=== PATIENT | male | born 1965 | race Caucasian/White ===

== ENCOUNTER → 2016-11-16 | Outpatient (REF) | payer SELFPAY ==
[2016-11-16 15:46] LABS: ANION GAP 9 MEQ/L (8-16); BLOOD UREA NITROGEN 18 MG/DL (7-18); CARBON DIOXIDE LEVEL 27 MEQ/L (21-32); CHLORIDE LEVEL 108 MEQ/L (98-107); CREATININE FOR GFR 1.19 MG/DL (0.70-1.30); GLOMERULAR FILTRATION RATE > 60.0 (>56); GLUCOSE, FASTING 103 MG/DL (70-105); SODIUM LEVEL 144 MEQ/L (136-145)
[2016-11-16 15:48] LABS: MEAN CORPUSCULAR HEMOGLOBIN 32.2 pg (27.0-33.0); MEAN CORPUSCULAR HGB CONC 34.9 g/dl (32.0-36.5); MEAN CORPUSCULAR VOLUME 92.3 fl (80.0-96.0); RED CELL DISTRIBUTION WIDTH 12.3 % (11.5-14.5); WHITE BLOOD COUNT 13.7 K/mm3 (4.0-10.0)
== END ==
LOC: M SFHCLACO 08:08
PROVIDERS: ATTEND Physician Assistant
DX: F17.200 Nicotine dependence, unspecified, uncomplicated (principal); K21.9 Gastro-esophageal reflux disease without esophagitis

== ENCOUNTER 2022-08-11 21:50 | Emergency (ER) | payer SELFPAY ==
[~2022-08-11] VITALS: Ht 167.6 cm; Wt 102.5 kg
[2022-08-11] MEDS ORDERED: LOSA50TA28 PO (21:59)
[2022-08-11] MEDS ORDERED: IBUP80TA (21:59)
[2022-08-12 00:22] LABS: BASO % 0.3 % (0.0-1.0); EOS # 0.1 10^3/uL (0.0-0.5); EOS % 0.6 % (0.0-3.0); HEMATOCRIT 47.1 % (42.0-52.0); HEMOGLOBIN 15.9 g/dl (13.5-17.5); LYMPH # 1.8 10^3/uL (1.5-5.0); LYMPH % 17.3 % (24.0-44.0); MEAN CORPUSCULAR HEMOGLOBIN 30.9 pg (27.0-33.0); MEAN CORPUSCULAR HGB CONC 33.8 g/dl (32.0-36.5); MEAN CORPUSCULAR VOLUME 91.6 fl (80.0-96.0); MONO # 0.8 10^3/uL (0.0-0.8); MONO % 7.4 % (2.0-8.0); NEUTROPHILS # 7.7 10^3/uL (1.5-8.5); NEUTROPHILS % 74.1 % (36.0-66.0); PLATELET COUNT, AUTOMATED 320 10^3/uL (150-450); RED BLOOD COUNT 5.14 10^6/uL (4.30-6.10); WHITE BLOOD COUNT 10.3 10^3/uL (4.0-10.0)
[2022-08-12 00:33] LABS: INR 0.97; PROTHROMBIN TIME 13.1 SECONDS (12.5-14.5)
[2022-08-12] MEDS ORDERED: NS 1,000 ML IV ONE (00:35)
[2022-08-12] MEDS ORDERED: MORPHINE 4 MG/ML 1ML VIAL IV ONE (00:35)
[2022-08-12 00:42] LABS: ALBUMIN 4.3 G/DL (3.2-5.2); ALKALINE PHOSPHATASE 54 U/L (46-116); ALT/SGPT 29 U/L (7.0-40); AST/SGOT 21 U/L (<34); BILIRUBIN,DIRECT 0.3 MG/DL (<0.4); BILIRUBIN,TOTAL 0.9 MG/DL (0.3-1.2); BLOOD UREA NITROGEN 16 MG/DL (9-23); CALCIUM LEVEL 8.6 MG/DL (8.5-10.1); CARBON DIOXIDE LEVEL 26 MMOL/L (20-31); CHLORIDE LEVEL 106 MMOL/L (98-107); CREATININE FOR GFR 1.06 MG/DL (0.70-1.30); GLOMERULAR FILTRATION RATE > 60.0 (>56); GLUCOSE, FASTING 109 MG/DL (60-100); POTASSIUM SERUM 4.5 MMOL/L (3.5-5.1); SODIUM LEVEL 140 MMOL/L (136-145); TOTAL PROTEIN 7.1 G/DL (5.7-8.2)
[2022-08-12 00:44] LABS: THYROXINE (T4) 9.9 UG/DL (4.5-10.9)
[2022-08-12 00:45] VITALS: BP 152/94
[2022-08-12 00:46] LABS: CPK CREATINE PHOSPHOKINASE 110 U/L (46-171)
[2022-08-12] MEDS ORDERED: ISOVUE-370 76% 100ML VIAL As Ordered ONE (00:54)
[2022-08-12 01:10] LABS: LIPASE 28 U/L (12-53)
[2022-08-12] MEDS ORDERED: SIMETHICONE 80MG CHEW TAB PO STA (03:25)
[2022-08-12] MEDS ORDERED: SIME180C25 PO (03:35)
[2022-08-12 03:57] LABS: CK-MB VALUE MASS < 1.0 NG/ML (<3.6)
[2022-08-12 03:58] LABS: CPK CREATINE PHOSPHOKINASE 91 U/L (46-171); MB/CK RELATIVE INDEX 1.09 (< OR =4)
== END 2022-08-12 03:49 | disposition home or self-care (01) ==
LOC: M ED 21:50
DX: R14.0 Abdominal distension (gaseous) (principal); R14.3 Flatulence; I10 Essential (primary) hypertension; Z79.899 Other long term (current) drug therapy
CPT/HCPCS: 71045; 71275; 74177; 80048; 80076; 82550; 82553; 83605; 83690; 83880; 84436; 84443; 84484; 85025; 85610; 87486; 87581; 87633; 87798; 93005; 93041; 94760; 96374; 99285; Q9967

== ENCOUNTER → 2024-05-19 | Outpatient (CLI) | payer OTHER ==
[~2024-05-19] MED LIST: IBUP80TA; LOSA50TA28 PO; SIME1CAP4 PO
[2024-05-19 15:12] LABS: BLOOD UREA NITROGEN 18 MG/DL (9-23); CARBON DIOXIDE LEVEL 30 MMOL/L (20-31); CHLORIDE LEVEL 108 MMOL/L (98-107); CREATININE FOR GFR 1.02 MG/DL (0.70-1.30); GLOMERULAR FILTRATION RATE > 60.0 (>56); GLUCOSE, FASTING 137 MG/DL (60-100); POTASSIUM SERUM 4.4 MMOL/L (3.5-5.1); SODIUM LEVEL 143 MMOL/L (136-145)
== END ==
LOC: M WUC 07:24
PROVIDERS: ATTEND Internal Medicine Cardiovascular Disease
DX: Q89.9 Congenital malformation, unspecified (principal); I34.0 Nonrheumatic mitral (valve) insufficiency

== ENCOUNTER → 2024-10-13 | Outpatient (REF) | payer OTHER, SELFPAY ==
[2024-10-13 13:56] LABS: ESTIMATED AVERAGE GLUCOSE 120.0 MG/DL (60-110)
== END ==
LOC: M LABDRWAD 12:32
PROVIDERS: ATTEND Nurse Practitioner Family
DX: E11.9 Type 2 diabetes mellitus without complications (principal)